=== PATIENT | female | born 1970 | race Caucasian/White ===

== ENCOUNTER → 2024-03-09 | Outpatient (CLI) | payer OTHER ==
--- NOTE | 2024-03-09 19:37 | MR ---
EXAMINATION TYPE: MR lumbar spine wo con DATE OF EXAM: 03/09/2024 COMPARISON: None HISTORY: Low back pain into buttocks and back of thigh x3 yrs, TECHNIQUE: Multiplanar, multisequence images of the lumbar spine were acquired without IV contrast. FINDINGS: The lumbar vertebral bodies do have preserved heights. Mild retrolisthesis of L5 on S1 wit h no evidence of pars defects. Disc desiccation with height loss at L5-S1. Type II Modic changes invo lving the endplates around L5-S1 disc. The conus medullaris and the distal spinal cord do appear unre markable with regards to their signal intensity and morphology. 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 L1-L2: No significant disc pathology is identified. The spinal canal and neural foramen are patent. L2-L3: No significant disc pathology is identified. The spinal canal and neural foramen are patent. L3-L4: No significant disc pathology is identified. The spinal canal and neural foramen are patent. L4-L5: Left paracentral disc bulge is identified with associated enlargement of the facet joints. The spinal canal remains patent. Neural canals are mildly narrowed bilaterally. L5-S1: Broad-based disc bulge without significant mass effect upon the thecal sac. Facet joints are enlarged. Neural canals do remain patent. Other significant findings: None. IMPRESSION: 1. No definitive evidence for disc herniation or significant spinal canal stenosis. 2. 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 Most pronounced at L5-S1. [facility], , 03/09/2024 7:35 PM
== END | disposition home or self-care (01) ==
LOC: RADMRIMAIN 13:41
PROVIDERS: ATTEND Anesthesiology
DX: M47.816 Spondylosis without myelopathy or radiculopathy, lumbar region
CPT/HCPCS: 72148